=== PATIENT | female | born 1980 | race Caucasian/White ===

== ENCOUNTER 2016-11-10 09:57 | Emergency (ER) | payer OTHER ==
--- NOTE | 2016-11-10 12:25 | DIAGNOSTIC IMAGING REPORT ---
PROCEDURE: US COMPLETE PELVIC W/TRANSVAG INDICATION: PELVIC PAIN TECHNIQUE: Transabdominal and endovaginal glez scale and color Doppler sonographic images of the female pelvis were obtained. COMPARISON: None. FINDINGS: TRANSABDOMINAL SCANS: The uterus is of normal size 6 x 4.2 x 5.5 cm Kidneys are normal. TRANSVAGINAL SCANS: The uterus is anteverted. Myometrium is normal. The endometrium measures 9 mm. Right ovary is normal measuring 3.0 x 1.6 x 2.5 cm. There are multiple follicular cyst and good blood flow. The left ovary is normal measuring 1.9 x 2.3 x 2.3 cm. Good blood flow was noted and a follicular cyst. IMPRESSION: 1. Normal uterus and ovaries and kidneys.
--- NOTE | 2016-11-10 12:36 | DIAGNOSTIC IMAGING REPORT ---
PROCEDURE: CT ABDOMEN/PELVIS W/O CONTRAST INDICATION: ABDOMINAL PAIN TECHNIQUE: Axial CT images were obtained through the abdomen and pelvis without IV contrast. Coronal and sagittal reformations were created. COMPARISON: 04/28/2010 FINDINGS: Clear lung bases. Normal sized heart. No hiatal hernia. The unenhanced appearance of the liver, gallbladder, adrenal glands, kidneys, pancreas and spleen is normal. The abdominal aorta is normal in its course and caliber. There are no suspicious calcifications, retroperitoneal adenopathy or masses. The stomach, upper bowel loops, and mesentery are normal. Intact anterior abdominal wall. No free fluid or inflammation. The unenhanced appearance of the uterus, ovaries, urinary bladder, pelvic vessels, and pelvic bowel loops is normal. Occasional sigmoid diverticula. Normal appendix. No suspicious calcifications, free pelvic fluid or mass. Intact osseous structures. IMPRESSION: 1. No evidence of urinary calculi or obstruction. 2. Normal appendix. 3. Occasional sigmoid diverticula. 4. Findings called to the emergency room. All CT scans at this facility use dose modulation, iterative reconstruction, and/or weight-based dosing when appropriate to reduce radiation dose to as low as reasonably achievable.
--- NOTE | 2016-11-10 13:09 | ED CLINICAL REPORT ---
Clinical Report - Physicians/Mid Levels [facility] [address] [place] [address] 11/10/2016 10:00 Patient: NICOLETTE KHOURY Time Seen: 10:09. Arrived- By private vehicle. Historian- patient. HISTORY OF PRESENT ILLNESS Chief Complaint: ABDOMINAL PAIN. At its maximum, severity described as severe. When seen in the E.D., severity described as severe. Modifying factors- worsened by movement. Relieved by rest. It is described as cramping. No radiation. It is described as located in the suprapubic area. This started today about 8 hours ago and is still present. It was gradual in onset and has been waxing/waning. The patient has had nausea. No vomiting or diarrhea. (pt c/o suprapubic abd pain "it woke me this morning" denies dysuria, hx of ovarian cyst, reports "same kind of pain as that" pt took excedrin without relief, describes as "bad cramps"). This started today. She has had abdominal pain. No nausea or vomiting. Last oral intake by patient was 0200 AM). No recent travel. Similar symptoms previously: Milder. Recent medical care: Not recently seen/assessed. REVIEW OF SYSTEMS Last normal menstrual period now. No constipation, black stools, hematemesis, difficulty with urination or pain with urination. No urinary frequency, bloody stools, fever, headache or sore throat. No chest pain, difficulty breathing, cough, skin rash or chills. No back pain or vaginal discharge. Denies current . All systems otherwise negative, except as recorded above. PAST HISTORY No history of peptic ulcer. No history of gallstones or bowel obstruction. Has not had urinary calculi. Ovarian cyst. Urinary tract infection. Surgeries: Carpal tunnel surgery. (Thumb surgery.). Medications: None. Allergies: None. SOCIAL HISTORY Smoker- current status unknown. Alcohol use. History of drug use 2 weeks ago: marijuana. ADDITIONAL NOTES The nursing notes have been reviewed. PHYSICAL EXAM Vital Signs: 11/10/2016 10:06 HR: 91. RR: 19. O2 saturation: 100%. Temp: 98.3 F. Pain level now: 03/06. Appearance: Alert. Oriented X3. Patient in moderate distress. Eyes: Eyes normal inspection. No scleral icterus or pale conjunctivae. ENT: Pharynx normal. No pharyngeal erythema or tonsillar exudate. The mucous membranes are not dry. Neck: Normal inspection. Neck supple. CVS: Heart sounds normal. Pulses normal. Respiratory: No respiratory distress. Breath sounds normal. No rales, rhonchi or wheezes. Abdomen: Moderate tenderness in the lower abdomen. No mass. No rebound tenderness or guarding. Back: Normal inspection. Skin: Skin warm and dry. Normal skin color. Normal skin turgor. Extremities: Extremities exhibit normal ROM. No lower extremity edema. No calf tenderness. No lower extremity edema. Neuro: Oriented X 3. No motor deficit. LABS, X-RAYS, AND EKG Abdominal CT: Normal study. IMPRESSION: 1. No evidence of urinary calculi or obstruction. 2. Normal appendix. 3. Occasional sigmoid diverticula. Study type: abdomen and pelvis. Abdominal CT performed without contrast. The study was independently viewed by me, interpreted by the radiologist and discussed with the radiologist. Pelvic Sonogram: Normal study. IMPRESSION: 1. Normal uterus and ovaries and kidneys. Study type: bedside. The study was independently viewed by me, interpreted by the radiologist and discussed with the radiologist. Laboratory Tests: UA-Culture if indicated: (BECKY: 11/10/2016 11:25) ( MsgRcvd 11/10/2016 11:58) Final results Test Result Flag Units (Reference) URINE COLOR RED URINE APPEARANCE CLOUDY URINE GLUCOSE NEGATIVE (NEGATIVE) URINE BILIRUBIN NEGATIVE (NEGATIVE) URINE KETONE NEGATIVE (NEGATIVE) URINE SPECIFIC GRAVITY 1.010 (1.010-1.030) URINE PH 6.5 (5.0-8.0) URINE PROTEIN NEGATIVE (NEGATIVE) URINE UROBILINOGEN 0.2 EU/dL (0.2-1.0) URINE NITRITE NEGATIVE (NEGATIVE) URINE BLOOD 3+ (NEGATIVE) URINE LEUK ESTERASE NEGATIVE (NEGATIVE) URINE RBC >100 rbc/hpf (0-1) URINE WBC NONE SEEN wbc/hpf (0-1) URINE EPITHELIAL CELLS 1-3 EPI/hpf (0-5) URINE BACTERIA NONE SEEN (NONE SEEN) URINE COMMENT CULT NOT INDICATED URINE CULTURES ARE SET-UP BASED ON THE FOLLOWING CRITERIA:POSITIVE NITRITEPOSITIVE LEUKOCYTE ESTERASEGREATER THAN 10 WHITE BLOOD CELLSMODERATE (2+) OR GREATER BACTERIA Urine: (BECKY: 11/10/2016 11:25) ( [facility] 11/10/2016 11:50) Final results Test Result Flag Units (Reference) URINE NEGATIVE CBC w Diff: (BECKY: 11/10/2016 10:32) ( [facility] 11/10/2016 10:47) Final results Test Result Flag Units (Reference) WHITE BLOOD COUNT 5.4 K/uL (4.5-11.5) RED BLOOD COUNT 4.17 M/uL (4.00-5.20) HEMOGLOBIN 13.4 gm/dL (12.0-16.0) HEMATOCRIT 40.1 % (36.0-46.0) MEAN CELL VOLUME 96 fL (80-100) MEAN CORPUSCULAR HGB 32 pg (26-34) MEAN CORPUSCULAR HGB CONC 34 g/dL (31-37) RED CELL DISTRIBUTION WIDTH 13.6 % (11.6-14.8) PLATELET COUNT 295 K/uL (150-400) NEUTROPHIL % 67.7 % (50-75) LYMPH % 21.5 L % (25-40) MONO % 8.2 % (3-14) EOSINOPHIL % 1.8 % (0-4) BASOPHIL % 0.8 % (0-2) PT with INR: (BECKY: 11/10/2016 10:32) ( [facility] 11/10/2016 11:05) Final results Test Result Flag Units (Reference) INR 0.9 (0.8-1.2) Low Intensity Therapy: INR 1.5-2.0 PT range 18.5-23.1Mod.Intensity Therapy: INR 2.0-3.0 PT range 23.1-31.5High Intensity Therapy: INR 2.5-3.5 PT range 27.4-35.5High Intensity Therapy 2: INR 3.0-4.0 PT range 31.5-39.3 CMP: (BECKY: 11/10/2016 10:32) ( MsgRcvd 11/10/2016 12:23) Final results Test Result Flag Units (Reference) GLUCOSE 100 mg/dL (70-110) BUN 14 mg/dL (7-18) CREATININE 0.9 mg/dL (0.6-1.3) Estimated GFR >60 mL/min Estimated GFR- >60 mL/min Note: Persistent reduction over 3 months in eGFR<60 mL/min/1.73 m2 defines CKD. Patients with eGFR values>=60 mL/min/1.73 m2 may also have CKD if evidence ofpersistent proteinuria. Additional information may be foundat www.kidney.org. SODIUM 139 mmol/L (136-145) POTASSIUM 4.1 mmol/L (3.5-5.1) CHLORIDE 102 mmol/L (98-107) CARBON DIOXIDE 29 mmol/L (21-32) CALCIUM 9.0 mg/dL (8.5-10.1) TOTAL PROTEIN 7.7 g/dL (6.4-8.2) ALBUMIN 3.8 g/dL (3.3-5.0) BILIRUBIN, TOTAL 0.3 mg/dL (0.0-1.0) ALKALINE PHOSPHATASE 86 U/L (46-116) AST (SGOT) 21 U/L (15-37) ALT (SGPT) 26 U/L (12-78) LIPASE 95 U/L (73-393) AMYLASE 41 U/L (25-115) URINE DRUG SCREEN POSITIVE,Unconfirmed DRUGS DETECTED: Amphetamine/Methamp The urine drug screen is a qualitative screening test fordrug overdose and abuse. All screen results should beconsidered as presumptive.Drugs screened for are as follows:BenzodiazepinesCocaineAmphetamines/MetamphetaminesTHC (Tetrahydrocannabinol)OpiatesBarbituratesTCA (Tricyclic Antidepressants)MethadonePositive results are unconfirmed. For confirmation, notifythe lab for the specimen to be sent to the reference lab.All confirmations must be performed by a differentmethodology.The ingestion of natural herbal and plant productscontaining Ephedra/Ephedra metabolites can produce in urineone or more substances capable of cross reacting withamphetamine/methamphetamine immunoassays. This testprovides a preliminary result only. A more specificalternative chemical method must be used to obtain aconfirmed analytical result. . Pulse Oximetry: 11/10/2016 10:06 O2 saturation: 100%. (FIO2 - room air). Interpretation: normal. PROGRESS AND PROCEDURES Course of Care: Normal Saline 1 liter IVPB given. Zofran 4 mg IVP given. Dilaudid 1 mg + 0.5 mg IVP given. Patient is stable. Physical exam findings are improved. Symptoms much better. Patient/family counseled. Old ED records reviewed. Disposition: Discharged. Condition: stable. CLINICAL IMPRESSION Acute pelvic pain. INSTRUCTIONS Do not work for two days. Drink plenty of fluids. No alcohol until released. Do not smoke. Seek medical help to quit smoking. Warnings: Further evaluation is necessary in order to recheck abnormal lab, obtain test results, conduct further tests and assess the possibility of serious illness. It is very important to follow up with a physician. SEDATIVE MEDICATION: You were given sedative medication during your visit. Do not drive or operate dangerous machinery. CONTROLLED SUBSTANCE WARNINGS. GENERAL WARNINGS: Return or contact your physician immediately if your condition worsens or changes unexpectedly, if not improving as expected, or if other problems arise. Prescription Medications: Hydrocodone/APAP 5mg / 325mg: take 1-2 orally every 8 hours as needed for pain. Dispense ten (10). No refill. OTC Medications: Take acetaminophen (Tylenol, Datril, etc.) and ibuprofen (Advil, Nuprin, etc.) according to label instructions. Available over the counter. Follow-up: Follow up with your doctor tomorrow. (Electronically signed by Buster Islas DO 11/10/2016 13:33)
--- NOTE | 2016-11-10 13:09 | ED ORDER SUMMARY ---
..... Patient: NICOLETTE KHOURY OrderSheet [facility] VisitID: [id number] [address] [place] [address] 36y, F Registration Date/Time: 11/10/2016 ORDER SHEET Weight: 68.9 kg (stated) Allergies: None GENERAL ORDERS: CBC w Diff Urgent (10:11/10/2016 PHutchinson DO) (Ack 10:12 KHoerner) (10:39 KPage-Kuchan R.N.) CMP Urgent (10:11/10/2016 PHorchinson DO) (Ack 10:12 KHoerner) (10:39 KPage-Kuchan R.N.) UA-Culture if indicated Urgent (10:11/10/2016 ) (Ack 10:12 KHoerner) (10:39 KPage-Kuchan R.N.) Amylase Urgent (10:11/10/2016 PHorchinson DO) (Ack 10:12 KHoerner) (10:39 KPage-Kuchan R.N.) Lipase Urgent (10:11/10/2016 PHorchinson DO) (Ack 10:12 KHoerner) (10:39 KPage-Kuchan R.N.) PT with INR Urgent (10:11/10/2016 chinson ) (Ack 10:12 KHoerner) (10:39 KPage-Kuchan R.N.) Urine Drug Screen Urgent (10:11/10/2016 son ) (Ack 10:12 KHoerner) (10:39 KPage-Kuchan R.N.) Urine Urgent (10:11/10/2016 PHorchinson DO) (Ack 10:12 KHoerner) (10:39 KPage-Kuchan R.N.) NPO (10:11/10/2016 PHorchinson DO) (Ack 10:34 TBergley) (10:39 KPage-Kuchan R.N.) US Pelvic Complete Urgent (10:35 [facility] (Ack 10:36 KHoerner) (10:39 KPage-Kuchan R.N.) (10:39 PHutchinson DO) (Cancelled: Other10:39 [facility] (Cancelled: Wrong Order10:40 KHoerner) US Pelvic Complete w Transvag Urgent (10:40 11/10/2016 [facility] (Ack 10:40 KHoerner) (10:42 KPage-Kuchan R.N.) CT Abd/Pel wo Cont (pelvic area pain (hematuria, but on period)) Urgent (11:58 11/10/2016 [facility] (Ack 12:00 KHoerner) (12:12 KHoerner) MEDICATION ORDERS: IV FLUIDS: IV NS : initial bolus 1000 mL (1000 mL/hr), then 500 mL/hr for X2 (NOW) (10:09 [facility]/10/2016 [facility] (10:40 KPage-Kuchan R.N.) Dilaudid IV 1 mg (HIGH ALERT MEDICATION, NOW) (10:17 11/10/2016 [facility] (10:40 KPage-Kuchan R.N.) Zofran IV 4 mg (NOW) (10:17 11/10/2016 [facility] (10:42 KPage-Kuchan R.N.) Dilaudid IV 0.5 mg (HIGH ALERT MEDICATION, NOW) (11:24 11/10/2016 [facility] (11:36 KPage-Kuchan R.N.) ORDER SHEET NOTES: [Electronically signed by Layton Ashby R.N. (13:26 11/10/2016)] [Electronically signed by Buster Islas DO (13:33 11/10/2016)] [Electronically locked/signed by Layton Ashby R.N. (13:26 11/10/2016)]
--- NOTE | 2016-11-10 13:09 | ED ORDER SUMMARY ---
..... Patient: NICOLETTE KHOURY OrderSheet [facility] VisitID: [id number] [address] [place] [address] 36y, F Registration Date/Time: 11/10/2016 ORDER SHEET Weight: 68.9 kg (stated) Allergies: None GENERAL ORDERS: CBC w Diff Urgent (10:11/10/2016 PHutchinson DO) (Ack 10:12 KHoerner) (10:39 KPage-Kuchan R.N.) CMP Urgent (10:11/10/2016 PHflchinson DO) (Ack 10:12 KHoerner) (10:39 KPage-Kuchan R.N.) UA-Culture if indicated Urgent (10:11/10/2016 ) (Ack 10:12 KHoerner) (10:39 KPage-Kuchan R.N.) Amylase Urgent (10:11/10/2016 PHflchinson DO) (Ack 10:12 KHoerner) (10:39 KPage-Kuchan R.N.) Lipase Urgent (10:11/10/2016 PHflchinson DO) (Ack 10:12 KHoerner) (10:39 KPage-Kuchan R.N.) PT with INR Urgent (10:11/10/2016 chinson ) (Ack 10:12 KHoerner) (10:39 KPage-Kuchan R.N.) Urine Drug Screen Urgent (10:11/10/2016 son ) (Ack 10:12 KHoerner) (10:39 KPage-Kuchan R.N.) Urine Urgent (10:11/10/2016 PHflchinson DO) (Ack 10:12 KHoerner) (10:39 KPage-Kuchan R.N.) NPO (10:11/10/2016 PHflchinson DO) (Ack 10:34 TBergley) (10:39 KPage-Kuchan R.N.) US Pelvic Complete Urgent (10:35 [facility] (Ack 10:36 KHoerner) (10:39 KPage-Kuchan R.N.) (10:39 PHutchinson DO) (Cancelled: Other10:39 [facility] (Cancelled: Wrong Order10:40 KHoerner) US Pelvic Complete w Transvag Urgent (10:40 11/10/2016 [facility] (Ack 10:40 KHoerner) (10:42 KPage-Kuchan R.N.) CT Abd/Pel wo Cont (pelvic area pain (hematuria, but on period)) Urgent (11:58 [facility]/10/2016 [facility] (Ack 12:00 KHoerner) (12:12 KHoerner) MEDICATION ORDERS: IV FLUIDS: IV NS : initial bolus 1000 mL (1000 mL/hr), then 500 mL/hr for X2 (NOW) (10:09 11/10/2016 [facility] (10:40 KPage-Kuchan R.N.) Dilaudid IV 1 mg (HIGH ALERT MEDICATION, NOW) (10:17 11/10/2016 [facility] (10:40 KPage-Kuchan R.N.) Zofran IV 4 mg (NOW) (10:17 11/10/2016 [facility] (10:42 KPage-Kuchan R.N.) Dilaudid IV 0.5 mg (HIGH ALERT MEDICATION, NOW) (11:24 11/10/2016 [facility]) (11:36 KPage-Kuchan R.N.) ORDER SHEET NOTES: [Electronically signed by Layton Ashby R.N. (13:26 11/10/2016)] [Electronically signed by Buster Islas DO (13:33 11/10/2016)] [Electronically locked/signed by Layton Ashby R.N. (13:26 11/10/2016)]
--- NOTE | 2016-11-10 13:09 | ED NURSING NOTES ---
Clinical Report - Nurses [facility] [address] [place] [address] 11/10/2016 10:00 Patient: NICOLETTE KHOURY TRIAGE Triage time 10:Nov 10 2016. Chief Complaint: ABDOMINAL PAIN and (pt c/o suprapubic abd pain "it woke me this morning" denies dysuria, hx of ovarian cyst, reports "same kind of pain as that" pt took excedrin without relief, describes as "bad cramps"). Alert. No acute distress. (tearful). SEPSIS SCREEN: Sepsis Screen. Negative (no infection suspected/documented). --10:14 Alisia Rainey R.N. 10:06 11/10/16. HR: 91. RR: 19. O2 saturation: 100%. Temp: 98.3 F. Pain level now: 03/06. --10:14 Alisia Rainey R.N. Weight: 68.9 kg stated. Height/Length: 62 inches Per Patient. BMI: 27.8. --10:12 Alisia Rainey R.N. Medications None. --10:10 Alisia Rainey R.N. Allergies None. --10:10 Alisia Rainey R.N. History Arrived by private vehicle. Historian: patient. This started today. She has had abdominal pain. No nausea or vomiting. Last oral intake by patient was (0200 AM). 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 PAST MEDICAL HX: Immunizations: up-to-date. Last normal menstrual period- now. SOCIAL HX: Smoker- current status unknown. Alcohol use; consumes liquor daily. History of drug use: marijuana. (2 weeks ago). No recent travel. No infectious disease exposure. No known contact with a sick individual. ABUSE ASSESSMENT: No report of abuse. SELF HARM ASSESSMENT: A self harm assessment was performed. The patient answered "no" to the question "Have you recently felt down, depressed, or hopeless?", "Have you noticed less interest or pleasure in doing things?", "Do you have thoughts of harming or killing yourself?", "Are you here because you tried to hurt yourself?", "Have you ever tried to hurt yourself before today?", "Have you recently had thoughts about harming or killing others?" and "Do you have any dangerous items in your possession?". FALL RISK ASSESSMENT: Fall risk assessment completed. No fall risk identified. NUTRITIONAL RISK ASSESSMENT: The nutritional risk assessment revealed no deficiencies. FUNCTIONAL ASSESSMENT: Functional assessment: no impairments noted. LEARNING NEEDS ASSESSMENT: The learning needs assessment revealed no barriers. SKIN INTEGRITY ASSESSMENT: Skin integrity risk assessment completed. No skin integrity risk identified. --10:14 Alisia Rainey R.N. PROBLEMS: Ovarian Cyst. --10:11 Alisia Rainey R.N. ADDITIONAL SURGERIES: Carpal Tunnel Surgery. Thumb surgery. --10:11 Alisia Rainey R.N. Interventions ID band on patient. To treatment room. --10:14 Alisia Rainey R.N. PHYSICAL ASSESSMENT To room via wheelchair. Patient gowned. GENERAL / NEURO / PSYCH: Alert. Oriented X 4. Appears in pain. HEENT: Mucous membranes are pink. RESPIRATORY: Respirations not labored. Breath sounds within normal limits. CVS: Capillary refill less than 2 seconds. GI / : Abdomen soft and nontender. Bowel sounds within normal limits. SKIN: Skin is warm and dry. --10:14 Alisia Rainey R.N. NURSING PROGRESS NOTES Head of bed elevated. Reassurance given. Patient identifiers checked. Call light placed in reach. Side rails up x 1. Bed placed in lowest position. Brakes of bed on. --10:15 Alisia Rainey R.N. 10:29 11/10/2016 Site #1 started via IV in the right antecubital space with an 20g angiocath; one attempt. Blood drawn: rainbow set. Labeled in the presence of the patient and sent to the lab. Saline lock flushed with saline. --10:40 Alisia Rainey R.N. 10:35 11/10/2016 Started bag #1 1000 mL IV Fluids IV NS (Saline); at 1000 mL/hr via site #1 via IV pump. Allergies verified and confirmed 5 rights. IV patency established. IV site checked: no pain, redness, or swelling. IV flushed thoroughly pre- and post-medication administration. --10:40 Alisia Rainey R.N. 10:35 11/10/2016 Dilaudid (HYDROmorphone HCl PF) IVP 1 mg given. via site #1. Allergies verified, confirmed 5 rights and sedative warning given to the patient and patient's family. IV patency established. IV site checked: no pain, redness, or swelling. IV flushed thoroughly pre- and post-medication administration. IVP given by RN. --10:40 Alisia Rainey R.N. 10:37 11/10/2016 Zofran (Ondansetron HCl) IVP 4 mg given. via site #1. Allergies verified and confirmed 5 rights. IV patency established. IV site checked: no pain, redness, or swelling. IV flushed thoroughly pre- and post-medication administration. IVP given by RN. --10:42 Alisia Rainey R.N. Pulse oximeter and NIBP monitor placed on patient; monitor alarms on (placed on prior to narcotic admin). Head of bed elevated. The patient has had no adverse reaction. Patient identifiers checked. Call light placed in reach. Side rails up x 2. Bed placed in lowest position. Brakes of bed on. --10:46 Alisia Rainey R.N. 10:45 11/10/16. BP: 119/92. HR: 79. RR: 17. O2 saturation: 100%. Pain level now: 01/03. --10:46 Alisia Rainey R.N. 11:29 11/10/2016 Dilaudid (HYDROmorphone HCl PF) IVP 0.5 mg given. via site #1. Allergies verified, confirmed 5 rights and sedative warning given to the patient and patient's family. IV patency established. IV site checked: no pain, redness, or swelling. IV flushed thoroughly pre- and post-medication administration. IVP given by RN. --11:36 Alisai Rainey R.N. ( pt during vag US, called out for pain meds, notified with new order and given ivp). --11:37 Alisia Rainey R.N. 12:03. Patient walked to CT with nurse. --12:28 Alisia Rainey R.N. Patient waiting for CT results. --12:28 Alisia Rainey R.N. 13:16 11/10/2016 IV Fluids IV NS Discontinued: bag #1 completed upon discharge. Total amount infused: 1000 mL. IV patency established. IV site checked: no pain, redness, or swelling. IV flushed thoroughly. --13:26 Layton Ashby R.N. DISPOSITION / DISCHARGE No learning barriers present. Discharge instructions provided and reviewed with the patient. Reviewed medication(s) side effects, precautions, dosing and course information. Reviewed referral to a primary care physician. Patient verbalized understanding. Written instructions provided in Occitan. The patient was discharged home and accompanied by family. She left the Emergency Department ambulatory and via private vehicle. Parent driving. --13:22 Layton Ashby R.N. 13:20 11/10/16. BP: 130/76. HR: 85. RR: 16. O2 saturation: 100%. Temp: 97.5 F. Pain level now: 0/10. --13:22 Layton Ashby R.N. 13:20 11/10/2016 Site #1 removed upon discharge. Manual pressure applied. --13:25 Layton Ashby R.N. Departure time: 13:25. --13:25 Layton Ashby R.N. Locked/Released at 11/10/2016 13:26 by Layton Asbhy R.N.
--- NOTE | 2016-11-10 13:33 | ED DISCHARGE INSTRUCTIONS ---
Patient: NICOLETTE KHOURY General Instructions [facility] VisitID: [id number] [place] [address] 36y, F Registration Date/Time: 11/10/2016 Acute pelvic pain. INSTRUCTIONS Do not work for two days. Drink plenty of fluids. No alcohol until released. Do not smoke. Seek medical help to quit smoking. Warnings: Further evaluation is necessary in order to recheck abnormal lab, obtain test results, conduct further tests and assess the possibility of serious illness. It is very important to follow up with a physician. SEDATIVE MEDICATION: You were given sedative medication during your visit. Do not drive or operate dangerous machinery. CONTROLLED SUBSTANCE WARNINGS. GENERAL WARNINGS: Return or contact your physician immediately if your condition worsens or changes unexpectedly, if not improving as expected, or if other problems arise. Prescription Medications: Hydrocodone/APAP 5mg / 325mg: take 1-2 orally every 8 hours as needed for pain. Dispense ten (10). No refill. OTC Medications: Take acetaminophen (Tylenol, Datril, etc.) and ibuprofen (Advil, Nuprin, etc.) according to label instructions. Available over the counter. Follow-up: Follow up with your doctor tomorrow. ADDITIONAL INFORMATION Pelvic Pain, Uncertain Cause Based on your visit today, the exact cause of your pelvic pain is not certain. But your condition does not appear to be serious at this time. However, the signs of a serious problem may take more time to appear. Therefore, it is important for you to watch for any new symptoms or worsening of your condition. Home Care: Rest until you are feeling better. Avoid sexual intercourse until your pain goes away. You may use acetaminophen (Tylenol) or ibuprofen (Motrin, Advil) to control pain, unless another medicine was prescribed. [NOTE: If you have chronic liver or kidney disease or ever had a stomach ulcer or GI bleeding, talk with your doctor before using these medicines.] Follow Up with your doctor as advised. If a culture test was taken, call in two days for the results. If the culture is positive, you will be given more advice at that time. Otherwise, follow-up with your doctor or this facility as instructed. Get Prompt Medical Attention if any of the following occur: Fever of 100.4F (38C) or higher, or as directed by your healthcare provider Vaginal discharge Worsening pain Weakness, dizziness or fainting Unexpected vaginal bleeding or passage of glez or white tissue from the vagina Pain that moves to the right lower abdomen Hydrocodone Bitartrate, Acetaminophen Oral tablet What is this medicine? ACETAMINOPHEN; HYDROCODONE (a set a CARLI sue fen; christiana droe KOE done) is a pain reliever. It is used to treat mild to moderate pain. How should I use this medicine? Take this medicine by mouth. Swallow it with a full glass of water. Follow the directions on the prescription label. If the medicine upsets your stomach, take the medicine with food or milk. Do not take more than you are told to take. Talk to your combination operator regarding the use of this medicine in children. This medicine is not approved for use in children. What side effects may I notice from receiving this medicine? Side effects that you should report to your doctor or health skin care therapist as soon as possible: allergic reactions like skin rash, itching or hives, swelling of the face, lips, or tongue breathing problems confusion feeling faint or lightheaded, falls stomach pain yellowing of the eyes or skin Side effects that usually do not require medical attention (report to your doctor or health skin care therapist if they continue or are bothersome): nausea, vomiting stomach upset What may interact with this medicine? alcohol antihistamines isoniazid medicines for depression, anxiety, or psychotic disturbances medicines for sleep muscle relaxants naltrexone narcotic medicines (opiates) for pain phenobarbital ritonavir tramadol What if I miss a dose? If you miss a dose, take it as soon as you can. If it is almost time for your next dose, take only that dose. Do not take double or extra doses. Where should I keep my medicine? Keep out of the reach of children. This medicine can be abused. Keep your medicine in a safe place to protect it from theft. Do not share this medicine with anyone. Selling or giving away this medicine is dangerous and against the law. Store at room temperature between 15 and 30 degrees C (59 and 86 degrees F). Protect from light. Keep container tightly closed. Throw away any unused medicine after the expiration date. Discard unused medicine and used packaging carefully. Pets and children can be harmed if they find used or lost packages. What should I tell my health care provider before I take this medicine? They need to know if you have any of these conditions: brain tumor Crohn's disease, inflammatory bowel disease, or ulcerative colitis drink more than 3 alcohol-containing drinks per day drug abuse or addiction head injury heart or circulation problems kidney disease or problems going to the bathroom liver disease lung disease, asthma, or breathing problems an unusual or allergic reaction to acetaminophen, hydrocodone, other opioid analgesics, other medicines, foods, dyes, or preservatives or trying to get breast-feeding What should I watch for while using this medicine? Tell your doctor or health skin care therapist if your pain does not go away, if it gets worse, or if you have new or a different type of pain. You may develop tolerance to the medicine. Tolerance means that you will need a higher dose of the medicine for pain relief. Tolerance is normal and is expected if you take the medicine for a long time. Do not suddenly stop taking your medicine because you may develop a severe reaction. Your body becomes used to the medicine. This does NOT mean you are addicted. Addiction is a behavior related to getting and using a drug for a non-medical reason. If you have pain, you have a medical reason to take pain medicine. Your doctor will tell you how much medicine to take. If your doctor wants you to stop the medicine, the dose will be slowly lowered over time to avoid any side effects. You may get drowsy or dizzy when you first start taking the medicine or change doses. Do not drive, use machinery, or do anything that may be dangerous until you know how the medicine affects you. Stand or sit up slowly. There are different types of narcotic medicines (opiates) for pain. If you take more than one type at the same time, you may have more side effects. Give your health care provider a list of all medicines you use. Your doctor will tell you how much medicine to take. Do not take more medicine than directed. Call emergency for help if you have problems breathing. The medicine will cause constipation. Try to have a bowel movement at least every 2 to 3 days. If you do not have a bowel movement for 3 days, call your doctor or health skin care therapist. Too much acetaminophen can be very dangerous. Do not take Tylenol (acetaminophen) or medicines that contain acetaminophen with this medicine. Many non-prescription medicines contain acetaminophen. Always read the labels carefully. You have been given the following additional information: Pelvic Pain, Unknown Cause Hydrocodone Bitartrate, Acetaminophen Oral tablet Do not work for two days. (Electronically signed by Buster Islas DO 11/10/2016 13:33)
--- NOTE | 2016-11-10 13:33 | ED DISCHARGE INSTRUCTIONS ---
Patient: NICOLETTE KHOURY General Instructions [facility] VisitID: [id number] [place] [address] 36y, F Registration Date/Time: 11/10/2016 Acute pelvic pain. INSTRUCTIONS Do not work for two days. Drink plenty of fluids. No alcohol until released. Do not smoke. Seek medical help to quit smoking. Warnings: Further evaluation is necessary in order to recheck abnormal lab, obtain test results, conduct further tests and assess the possibility of serious illness. It is very important to follow up with a physician. SEDATIVE MEDICATION: You were given sedative medication during your visit. Do not drive or operate dangerous machinery. CONTROLLED SUBSTANCE WARNINGS. GENERAL WARNINGS: Return or contact your physician immediately if your condition worsens or changes unexpectedly, if not improving as expected, or if other problems arise. Prescription Medications: Hydrocodone/APAP 5mg / 325mg: take 1-2 orally every 8 hours as needed for pain. Dispense ten (10). No refill. OTC Medications: Take acetaminophen (Tylenol, Datril, etc.) and ibuprofen (Advil, Nuprin, etc.) according to label instructions. Available over the counter. Follow-up: Follow up with your doctor tomorrow. ADDITIONAL INFORMATION Pelvic Pain, Uncertain Cause Based on your visit today, the exact cause of your pelvic pain is not certain. But your condition does not appear to be serious at this time. However, the signs of a serious problem may take more time to appear. Therefore, it is important for you to watch for any new symptoms or worsening of your condition. Home Care: Rest until you are feeling better. Avoid sexual intercourse until your pain goes away. You may use acetaminophen (Tylenol) or ibuprofen (Motrin, Advil) to control pain, unless another medicine was prescribed. [NOTE: If you have chronic liver or kidney disease or ever had a stomach ulcer or GI bleeding, talk with your doctor before using these medicines.] Follow Up with your doctor as advised. If a culture test was taken, call in two days for the results. If the culture is positive, you will be given more advice at that time. Otherwise, follow-up with your doctor or this facility as instructed. Get Prompt Medical Attention if any of the following occur: Fever of 100.4F (38C) or higher, or as directed by your healthcare provider Vaginal discharge Worsening pain Weakness, dizziness or fainting Unexpected vaginal bleeding or passage of glez or white tissue from the vagina Pain that moves to the right lower abdomen Hydrocodone Bitartrate, Acetaminophen Oral tablet What is this medicine? ACETAMINOPHEN; HYDROCODONE (a set a CARLI sue fen; christiana droe KOE done) is a pain reliever. It is used to treat mild to moderate pain. How should I use this medicine? Take this medicine by mouth. Swallow it with a full glass of water. Follow the directions on the prescription label. If the medicine upsets your stomach, take the medicine with food or milk. Do not take more than you are told to take. Talk to your planning manager regarding the use of this medicine in children. This medicine is not approved for use in children. What side effects may I notice from receiving this medicine? Side effects that you should report to your doctor or health career development specialist as soon as possible: allergic reactions like skin rash, itching or hives, swelling of the face, lips, or tongue breathing problems confusion feeling faint or lightheaded, falls stomach pain yellowing of the eyes or skin Side effects that usually do not require medical attention (report to your doctor or health career development specialist if they continue or are bothersome): nausea, vomiting stomach upset What may interact with this medicine? alcohol antihistamines isoniazid medicines for depression, anxiety, or psychotic disturbances medicines for sleep muscle relaxants naltrexone narcotic medicines (opiates) for pain phenobarbital ritonavir tramadol What if I miss a dose? If you miss a dose, take it as soon as you can. If it is almost time for your next dose, take only that dose. Do not take double or extra doses. Where should I keep my medicine? Keep out of the reach of children. This medicine can be abused. Keep your medicine in a safe place to protect it from theft. Do not share this medicine with anyone. Selling or giving away this medicine is dangerous and against the law. Store at room temperature between 15 and 30 degrees C (59 and 86 degrees F). Protect from light. Keep container tightly closed. Throw away any unused medicine after the expiration date. Discard unused medicine and used packaging carefully. Pets and children can be harmed if they find used or lost packages. What should I tell my health care provider before I take this medicine? They need to know if you have any of these conditions: brain tumor Crohn's disease, inflammatory bowel disease, or ulcerative colitis drink more than 3 alcohol-containing drinks per day drug abuse or addiction head injury heart or circulation problems kidney disease or problems going to the bathroom liver disease lung disease, asthma, or breathing problems an unusual or allergic reaction to acetaminophen, hydrocodone, other opioid analgesics, other medicines, foods, dyes, or preservatives or trying to get breast-feeding What should I watch for while using this medicine? Tell your doctor or health career development specialist if your pain does not go away, if it gets worse, or if you have new or a different type of pain. You may develop tolerance to the medicine. Tolerance means that you will need a higher dose of the medicine for pain relief. Tolerance is normal and is expected if you take the medicine for a long time. Do not suddenly stop taking your medicine because you may develop a severe reaction. Your body becomes used to the medicine. This does NOT mean you are addicted. Addiction is a behavior related to getting and using a drug for a non-medical reason. If you have pain, you have a medical reason to take pain medicine. Your doctor will tell you how much medicine to take. If your doctor wants you to stop the medicine, the dose will be slowly lowered over time to avoid any side effects. You may get drowsy or dizzy when you first start taking the medicine or change doses. Do not drive, use machinery, or do anything that may be dangerous until you know how the medicine affects you. Stand or sit up slowly. There are different types of narcotic medicines (opiates) for pain. If you take more than one type at the same time, you may have more side effects. Give your health care provider a list of all medicines you use. Your doctor will tell you how much medicine to take. Do not take more medicine than directed. Call emergency for help if you have problems breathing. The medicine will cause constipation. Try to have a bowel movement at least every 2 to 3 days. If you do not have a bowel movement for 3 days, call your doctor or health career development specialist. Too much acetaminophen can be very dangerous. Do not take Tylenol (acetaminophen) or medicines that contain acetaminophen with this medicine. Many non-prescription medicines contain acetaminophen. Always read the labels carefully. You have been given the following additional information: Pelvic Pain, Unknown Cause Hydrocodone Bitartrate, Acetaminophen Oral tablet Do not work for two days. (Electronically signed by Buster Islas DO 11/10/2016 13:33)
--- NOTE | 2016-11-10 13:33 | ED MAR SUMMARY ---
..... Medication Administration Record [facility] [address] [place] [address] Patient: NICOLETTE KHOURY Visit ID: [id number] 36y, F Weight: 68.9 kg Height/Length: 62 in BMI: 27.8 ALLERGIES: None Start 10:35 11/10/2016 Alisia Rainey R.N., Stop 13:16 11/10/2016 Layton Ashby R.N. Medication Administered: IV NS (SALINE), Dose: IV Fluids, Rate: 1000 mL/hr, Dispensed: 1000 mL bag, Site: #1 right AC. Medication Ordered: IV NS : initial bolus 1000 mL (1000 mL/hr), then 500 mL/hr for X2 (NOW). Given 10:35 11/10/2016 Alisia Rainey R.N. Medication Administered: DILAUDID [IVP] (HYDROMORPHONE HCL PF), Dose: 1 mg IVP, Site: #1 right AC. Medication Ordered: Dilaudid IV 1 mg (HIGH ALERT MEDICATION, NOW). Given 10:37 11/10/2016 Alisia Rainey R.N. Medication Administered: ZOFRAN [IVP] (ONDANSETRON HCL), Dose: 4 mg IVP, Site: #1 right AC. Medication Ordered: Zofran IV 4 mg (NOW). Given 11:29 11/10/2016 Alisia Rainey R.N. Medication Administered: DILAUDID [IVP] (HYDROMORPHONE HCL PF), Dose: 0.5 mg IVP, Site: #1 right AC. Medication Ordered: Dilaudid IV 0.5 mg (HIGH ALERT MEDICATION, NOW).
--- NOTE | 2016-11-10 13:33 | ED MED RECONCILIATION SUMMARY ---
Patient: NICOLETTE KHOURY Medication Reconciliation Report [facility] VisitID: [id number] [address] [place] [address] 36y, F Registration Date/Time: 11/10/2016 Weight: 68.9 kg Height/Length: 62 in. BMI: 27.8 ALLERGIES: None The patient's Home Medications are listed below: NONE. The source(s) of the original Home Medication information: Not obtained. The following Medications were given to the patient in the Emergency Department: IV NS IV Fluids bolus 0, then 1000 mL/hr, administered: 11/10/2016 10:35:00 AM Dilaudid [IVP] IVP 1 mg, administered: 11/10/2016 10:35:00 AM Zofran [IVP] IVP 4 mg, administered: 11/10/2016 10:37:00 AM Dilaudid [IVP] IVP 0.5 mg, administered: 11/10/2016 11:29:00 AM The following Medications were prescribed to the patient: Take acetaminophen (Tylenol, Datril, etc.) and ibuprofen (Advil, Nuprin, etc.) according to label instructions. Available over the counter. -- Buster Islas DO Hydrocodone/APAP 5mg / 325mg: take 1-2 orally every 8 hours as needed for pain. Dispense ten (10). No refill. -- Buster Islas DO
--- NOTE | 2016-11-10 13:33 | ED MED RECONCILIATION SUMMARY ---
Patient: NICOLETTE KHOURY Medication Reconciliation Report [facility] VisitID: [id number] [address] [place] [address] 36y, F Registration Date/Time: 11/10/2016 Weight: 68.9 kg Height/Length: 62 in. BMI: 27.8 ALLERGIES: None The patient's Home Medications are listed below: NONE. The source(s) of the original Home Medication information: Not obtained. The following Medications were given to the patient in the Emergency Department: IV NS IV Fluids bolus 0, then 1000 mL/hr, administered: 11/10/2016 10:35:00 AM Dilaudid [IVP] IVP 1 mg, administered: 11/10/2016 10:35:00 AM Zofran [IVP] IVP 4 mg, administered: 11/10/2016 10:37:00 AM Dilaudid [IVP] IVP 0.5 mg, administered: 11/10/2016 11:29:00 AM The following Medications were prescribed to the patient: Take acetaminophen (Tylenol, Datril, etc.) and ibuprofen (Advil, Nuprin, etc.) according to label instructions. Available over the counter. -- Buster Islas DO Hydrocodone/APAP 5mg / 325mg: take 1-2 orally every 8 hours as needed for pain. Dispense ten (10). No refill. -- Buster Islas DO
--- NOTE | 2016-11-10 13:33 | ED MAR SUMMARY ---
..... Medication Administration Record [facility] [address] [place] [address] Patient: NICOLETTE KHOURY Visit ID: [id number] 36y, F Weight: 68.9 kg Height/Length: 62 in BMI: 27.8 ALLERGIES: None Start 10:35 11/10/2016 Alisia Rainey R.N., Stop 13:16 11/10/2016 Layton Ashby R.N. Medication Administered: IV NS (SALINE), Dose: IV Fluids, Rate: 1000 mL/hr, Dispensed: 1000 mL bag, Site: #1 right AC. Medication Ordered: IV NS : initial bolus 1000 mL (1000 mL/hr), then 500 mL/hr for X2 (NOW). Given 10:35 11/10/2016 Alisia Rainey R.N. Medication Administered: DILAUDID [IVP] (HYDROMORPHONE HCL PF), Dose: 1 mg IVP, Site: #1 right AC. Medication Ordered: Dilaudid IV 1 mg (HIGH ALERT MEDICATION, NOW). Given 10:37 11/10/2016 Alisia Rainey R.N. Medication Administered: ZOFRAN [IVP] (ONDANSETRON HCL), Dose: 4 mg IVP, Site: #1 right AC. Medication Ordered: Zofran IV 4 mg (NOW). Given 11:29 11/10/2016 Alisia Rainey R.N. Medication Administered: DILAUDID [IVP] (HYDROMORPHONE HCL PF), Dose: 0.5 mg IVP, Site: #1 right AC. Medication Ordered: Dilaudid IV 0.5 mg (HIGH ALERT MEDICATION, NOW).
== END 2016-11-10 16:51 | disposition home or self-care (01) ==
LOC: ED SRH 09:57
DX: R10.2 Pelvic and perineal pain (principal)
CPT/HCPCS: 90004; 90100; 90939; 92235; 92530; 93070; 94060; 95059